=== PATIENT | female | born 1975 | race Caucasian/White ===

== ENCOUNTER 2021-01-20 13:55 | Emergency (ER) | payer OTHER ==
[~2021-01-20] VITALS: Ht 167.6 cm; Wt 90.7 kg
[2021-01-20 13:58] VITALS: BP 141/96
[2021-01-20] MEDS ORDERED: LEXAPRO20 MG PO (14:01)
== END 2021-01-20 23:22 | disposition home or self-care (01) ==
LOC: ER 13:55
DX: S61.012A Laceration without foreign body of left thumb without damage to nail, initial encounter (principal); Z79.899 Other long term (current) drug therapy; W26.0XXA Contact with knife, initial encounter; Y93.G3 Activity, cooking and baking; Y92.090 Kitchen in other non-institutional residence as the place of occurrence of the external cause; Y99.8 Other external cause status